=== PATIENT | male | born 1960 | race Caucasian/White ===

== ENCOUNTER 2019-10-16 00:02 | Emergency (ER) | payer MEDICAID ==
[~2019-10-16] VITALS: Ht 177.8 cm; Wt 89.4 kg
[2019-10-16 00:10] VITALS: BP_SYST 146
--- NOTE | 2019-10-16 00:10 | NUR ---
Patient triaged in the ambulance [facility] and placed in [facility] w/ ems gurney. VSS and patient appears in no acute distress at this time. Accompanied by ems, awaiting available bed, and MD notified of need for MSE.
--- NOTE | 2019-10-16 00:32 | NUR ---
GURVINDER Werner examining patient.
[2019-10-16 01:13] LABS: BASOPHILS % (AUTO) 0.4 % (0.0-2.0); EOSINOPHILS # (AUTO) 0.2 K/uL (0.0-0.4); EOSINOPHILS % (AUTO) 2.4 % (0.0-4.0); HEMOGLOBIN 13.2 g/dL (14.0-18.0); LYMPHOCYTES # (AUTO) 1.8 K/uL (1.0-5.5); LYMPHOCYTES % (AUTO) 23.9 % (20.5-51.5); MEAN CORPUSCULAR HEMOGLOBIN 32 pg (27-31); MEAN CORPUSCULAR HGB CONC 34 % (32-36); MEAN CORPUSCULAR VOLUME 94 fL (79.0-98.0); MONOCYTES # (AUTO) 0.6 K/uL (0.0-1.0); MONOCYTES % (AUTO) 7.4 % (1.7-9.3); NEUTROPHILS # (AUTO) 5.1 K/uL (1.8-7.7); NEUTROPHILS % (AUTO) 65.9 % (40.0-70.0); PLATELET COUNT (AUTO) 172 K/uL (130-430); RED BLOOD CELL COUNT(AUTO) 4.16 MIL/uL (4.2-6.2); RED CELL DISTRIBUTION WIDTH 13.4 % (9.0-15.0); WHITE BLOOD COUNT (AUTO) 7.7 K/uL (4.8-10.8)
[2019-10-16 01:24] LABS: CALCIUM 9.2 mg/dL (8.4-11.0); CREATININE 1.01 mg/dL (0.55-1.30); POTASSIUM 3.8 mmol/L (3.5-5.1)
[2019-10-16 01:29] LABS: ALBUMIN 3.8 g/dL (3.4-4.8); TOTAL BILIRUBIN 0.5 mg/dL (0.0-1.0)
--- NOTE | 2019-10-16 01:30 | NUR ---
Patient transported to radiology via GURNEY, accompanied by
--- NOTE | 2019-10-16 01:45 | NUR ---
Report given to Cosme PEARCE
[2019-10-16] MEDS ORDERED: LOSA25TA18 PO (02:11)
[2019-10-16] MEDS ORDERED: CLOP75TA32 PO (02:11)
[2019-10-16] MEDS ORDERED: CARV12.548 PO (02:11)
--- NOTE | 2019-10-16 02:12 | NUR ---
Medication reconciliation completed with information provided by patient. Any prior medication reconciliation on file was reviewed and corrected.
--- NOTE | 2019-10-16 02:18 | NUR ---
received report. pt is alert and oriented. able to move all extremeties. VSS
[2019-10-16 02:37] LABS: PROTHROMBIN TIME 10.5 SECS (9.5-12.5)
[2019-10-16] MEDS ORDERED: LIP80 PO (02:49)
[2019-10-16] MEDS ORDERED: POTA10TA15 PO (02:49)
[2019-10-16] MEDS ORDERED: DEXAMETHASONE SOD PHOSPHATE 10 MG/ML VIAL ONE (03:02)
[2019-10-16 03:04] VITALS: BP_SYST 146
== END 2019-10-16 02:18 | disposition short-term general hospital (02) ==
LOC: SED 00:02
DX: I61.8 Other nontraumatic intracerebral hemorrhage (principal); I10 Essential (primary) hypertension; Z79.899 Other long term (current) drug therapy
CPT/HCPCS: 36415; 70450; 71045; 80053; 83880; 84484; 85025; 85610; 85730; 93005; 99291; J1100

== ENCOUNTER 2022-06-17 08:54 | Day surgery (SDC) | payer MEDICAID ==
[~2022-06-17] VITALS: Ht 180.3 cm; Wt 79.6 kg
[~2022-06-17 08:54] MED LIST: CARV12.548 PO; CLOP75TA32 PO; LIP80 PO; LOSA25TA18 PO; POTA10TA15 PO
[2022-06-17] MEDS ORDERED: BUPIVACAINE /EPINEPHRINE/PF 0.5% 30 ML VIAL INJ ONE (11:00)
[2022-06-17] MEDS ORDERED: SEVOFLURANE 15 MIN GAS INH ONE (11:00)
[2022-06-17] MEDS ORDERED: ONDANSETRON HCL 4 MG/2 ML VIAL ONE (11:00)
[2022-06-17] MEDS ORDERED: PROPOFOL 200MG/ 20ML VIAL (DIPRIVAN) IV ONE (11:00)
[2022-06-17] MEDS ORDERED: fentaNYL CITRATE 250 MCG/5 ML AMP ONE (11:00)
[2022-06-17] MEDS ORDERED: NS 1000 ML IV.SOLN IV ONE (11:00)
[2022-06-17] MEDS ORDERED: LIDOCAINE 1% 10 MG/ML, 20 ML MDV ONE (11:00)
[2022-06-17] MEDS ORDERED: MIDAZOLAM HCL 5 MG/ML VIAL (VERSED) IV ONE (11:00)
[2022-06-17] MEDS ORDERED: DEXAMETHASONE SOD PHOSPHATE 4 MG/ML VIAL ONE (11:00)
[2022-06-17] MEDS ORDERED: ACETAMINOPHEN I.V. 1000 MG /100 ML IVPB PREMIX IV ONE (11:00)
[2022-06-17] MEDS ORDERED: EPINEPHrine HCL 1 MG/ML VIAL ONE (11:00)
[2022-06-17] MEDS ORDERED: ceFAZolin SODIUM 1 GM VIAL ONE (11:00)
[2022-06-17] MEDS ORDERED: LR 1,000 ML IV.SOLN IV ONE (11:00)
[2022-06-17] MEDS ORDERED: LABETALOL 100 MG/ 20ML VIAL IVP PRN (11:45)
[2022-06-17] MEDS ORDERED: MIDAZOLAM HCL 2 MG/2 ML VIAL (VERSED) IVP PRN (11:45)
[2022-06-17] MEDS ORDERED: MEPERIDINE HCL/PF 25 MG/ML DISP.SYRIN IVP PRN (11:45)
[2022-06-17] MEDS ORDERED: METOCLOPRAMIDE HCL 10 MG/2 ML VIAL IVP PRN (11:45)
[2022-06-17] MEDS ORDERED: LR 1,000 ML IV SCH (11:45)
[2022-06-17] MEDS ORDERED: HYDROmorphone 1 MG/ML INJ. CARTRIDGE IVP PRN ×2 (11:45)
[2022-06-17] MEDS ORDERED: hydrALAZINE HCL 20 MG/ML VIAL IVP PRN (11:45)
[2022-06-17] MEDS ORDERED: ACETAMINOPHEN I.V. 1000 MG 100 ML IV ONE (11:53)
[2022-06-17] MEDS ORDERED: METOCLOPRAMIDE HCL 10 MG/2 ML VIAL ONE (12:55)
[2022-06-17 16:07] VITALS: BP_SYST 125
== END 2022-06-17 15:53 | disposition home or self-care (01) ==
LOC: SDS 08:54 → SMU 08:55 → SDS 15:53
PROVIDERS: ATTEND Student in an Organized Health Care Education/Training Program
DX: S83.282A Other tear of lateral meniscus, current injury, left knee, initial encounter (principal); M17.12 Unilateral primary osteoarthritis, left knee; I10 Essential (primary) hypertension; E78.5 Hyperlipidemia, unspecified; Z79.82 Long term (current) use of aspirin; Z79.899 Other long term (current) drug therapy; X58.XXXA Exposure to other specified factors, initial encounter; Y93.89 Activity, other specified; Y92.89 Other specified places as the place of occurrence of the external cause; Y99.8 Other external cause status
CPT/HCPCS: 87081; 29881; 36415; 87426; J3490; J0690; J1100; J0171; J2001; J2765; J2250; J2405; J2704; J3010; J7120; J7030; J0131